=== PATIENT | female | born 1975 | race Two or more races ===

== ENCOUNTER 2018-12-30 15:42 | Emergency (ER) | payer MEDICAID ==
[~2018-12-30] VITALS: Ht 147.3 cm; Wt 67.1 kg
[2018-12-30 17:05] VITALS: BP 124/77
[2018-12-30 17:52] LABS: Urine Bacteria NONE SEEN /hpf (None Seen); Urine Blood Negative /uL (Negative); Urine Specific Gravity 1.022 (1.001-1.035); Urine WBC 1 /hpf (0 - 5)
[2018-12-30] MEDS ORDERED: PHENAZOPYRIDINE HCL 100 MG TAB PO ONE (19:00)
[2018-12-30] MEDS ORDERED: cefTRIAXone SOD 1,000 MG VL IM ONE (19:00)
[2018-12-30] MEDS ORDERED: LACTULOSE 20Gm/30ML SOLN PO ONE (19:15)
== END 2018-12-30 19:57 | disposition home or self-care (01) ==
LOC: ER 15:42
DX: K59.00 Constipation, unspecified (principal); Z87.440 Personal history of urinary (tract) infections
CPT/HCPCS: 74018; 81001